=== PATIENT | male | born 1995 | race Caucasian/White ===

== ENCOUNTER 2017-05-18 03:48 | Emergency (ER) | payer OTHER ==
[2017-05-18 04:18] VITALS: TEMP 97.6; BMI 30.5
[2017-05-18] MEDS ORDERED: traMADol HCL 50 MG TABLET PO ONE (04:22)
[2017-05-18] MEDS ORDERED: traMADol HCL 50 MG TABLET ONE (04:34)
--- NOTE | 2017-05-18 04:40 | PDOC ---
History of Present Illness - General Chief Complaint: Injury Stated Complaint: FALL Time Seen by Provider: 05/18/17 04:02 History Source: Patient Exam Limitations: No Limitations - History of Present Illness Initial Comments: 05/18/17 04:32 Patient is a 21-year-old male with no past medical history who presents to the emergency department tonight stating he broke his teeth. Patient was walking into his house when he tripped over his feet and fell on the driveway. He states that he blacked out for approximately 30 seconds after falling came to and notices teeth were missing. Patient did not states that she. Denies neck pain, headache,eyepain, jawpain. Denies drug and alcohol use Past History - Travel Traveled outside of the country in the last 30 days: No Close contact w/someone who was outside of country & ill: No - Past Medical History Allergies/Adverse Reactions: Allergies Allergy/AdvReac Type Severity Reaction Status Date / Time minerals [From Enviro Stress] Allergy Difficulty Verified 05/18/17 04:16 Breathing vitamin B complex and C Allergy Difficulty Verified 05/18/17 04:16 [From Enviro Stress] Breathing vitamin E Allergy Difficulty Verified 05/18/17 04:16 [From Enviro Stress] Breathing Home Medications: Ambulatory Orders Cetirizine HCl [Zyrtec -] 5 mg PO ASDIR 11/19/14 Ibuprofen [Motrin -] 600 mg PO TID #21 tablet 11/19/14 Tramadol HCl 50 mg PO TID #10 tablet MDD 3 05/18/17 - Immunization History Immunization Up to Date: Yes - Suicide/Smoking/Psychosocial Hx Smoking Status: No Smoking History: Never smoked Have you smoked in the past 12 months: No Number of Cigarettes Smoked Daily: 0 Information on smoking cessation initiated: No Hx Alcohol Use: No Drug/Substance Use Hx: No Review of Systems - Review of Systems Able to Perform ROS?: Yes Comments:: 05/18/17 04:44 CONSTITUTIONAL: Absent: fever, chills, diaphoresis, generalized weakness, malaise, loss of appetite HEENT: Absent: rhinorrhea, nasal congestion, throat pain, throat swelling, difficulty swallowing, mouth swelling, ear pain, eye pain, visual Changes CARDIOVASCULAR: Absent: chest pain, loss of consciousness, palpitations, irregular heart rate, peripheral edema RESPIRATORY: Absent: cough, shortness of breath, dyspnea with exertion, orthopnea, wheezing, stridor, hemoptysis GASTROINTESTINAL: Absent: abdominal pain, abdominal distension, nausea, vomiting, diarrhea, constipation, melena, hematochezia GENITOURINARY: Absent: dysuria, frequency, urgency, hesitancy, hematuria, flank pain, genital pain MUSCULOSKELETAL: Absent: myalgia, arthralgia, joint swelling SKIN: Absent: rash, itching, pallor HEMATOLOGIC/IMMUNOLOGIC: Absent: easy bleeding, easy bruising, lymphadenopathy, frequent infections ENDOCRINE: Absent: unexplained weight gain, unexplained weight loss, heat intolerance, cold intolerance NEUROLOGIC: Absent: headache, focal weakness or paresthesias, dizziness, unsteady gait, seizure, mental status changes, bladder or bowel incontinence PSYCHIATRIC: Absent: anxiety, depression, suicidal or homicidal ideation, hallucinations. Is the patient limited Maori proficient: No *Physical Exam - Vital Signs Last Vital Signs Temp Pulse Resp BP Pulse Ox 97.6 F 119 H 20 132/91 99 05/18/17 03:50 05/18/17 03:50 05/18/17 03:50 05/18/17 03:50 05/18/17 03:50 - Physical Exam Comments: 05/18/17 04:44 GENERAL: Well developed, well nourished. Awake and alert. No acute distress. HEENT: Normocephalic, atraumatic. PERRLA, EOMI. No conjunctival pallor. Sclera are non- icteric. Moist mucous membranes. Oropharynx is clear. NECK: Supple. Full ROM. No JVD. Carotid pulses 2+ and symmetric, without bruits. No thyromegaly. No lymphadenopathy. CARDIOVASCULAR: Regular rate and rhythm. No murmurs, rubs, or gallops. Distal pulses are 2+ and symmetric. PULMONARY: No evidence of respiratory distress. Lungs clear to auscultation bilaterally. No wheezing, rales or rhonchi. ABDOMINAL: Soft. Non-tender. Non-distended. No rebound or guarding. No organomegaly. Normoactive bowel sounds. MUSCULOSKELETAL Normal range of motion at all joints. No bony deformities or tenderness. No CVA tenderness. EXTREMITIES: No cyanosis. No clubbing. No edema. No calf tenderness. SKIN: Warm and dry. Normal capillary refill. No rashes. No jaundice. NEUROLOGICAL: Alert, awake, appropriate. Cranial nerves 2-12 intact. No deficits to light touch and temperature in face, upper extremities and lower extremities. No motor deficits in the in face, upper extremities and lower extremities. Normoreflexic in the upper and lower extremities. Normal speech. Toes are down- going bilaterally. Gait is normal without ataxia. PSYCHIATRIC: Cooperative. Good eye contact. Appropriate mood and affect. Medical Decision Making - Medical Decision Making 05/18/17 04:44 Patient is a 21-year-old male with no past medical history who presents to the emergency department today with complex dental fractures. Spoke with Dr. Hector joe oral surgeron at [facility] who recommends that patient come to the general clinic after opening at 9 AM. The pulp should remain intact until he didn't can be seen in the morning. Does not recommend antibiotics at this time if he can follow-up today. Recommends medicating for pain. Tetanus is up-to-date. Also instructed to have the patient avoid hot and cold foods. Patient did have a brief loss of consciousness during the fall. However neurologically the patient is intact, without headache. There is no concern for jaw fracture, orbital floor fracture (EOMI intact). Head with no step-offs or crepitus felt. Will discharge the patient home at this time with instructions to go to the [facility] at 9 AM this morning for follow-up. Patient understands the need to follow-up and agrees to go. Patient also given strict return precautions for headache/head trauma. Patient understands all discharge instructions and all questions were answered at this time. *DC/Admit/Observation/Transfer Diagnosis at time of Disposition: Tooth fractures Qualifiers: Encounter type: initial encounter Fracture type: open Qualified Code(s): S02.5XXB - Fracture of tooth (traumatic), initial encounter for open fracture - Discharge Dispostion Disposition: HOME Condition at time of disposition: Stable Admit: No - Referrals - Patient Instructions Additional Instructions: You fell tonight and broke your teeth. It is very important that you follow-up with the [facility] this morning at 9 AM. You can walk in. Below was the information for the clinic [address] [place] [address] [phone] Please avoid eating or drinking hot or cold foods as to not irritate your teeth. He may take Tylenol or Motrin as needed for pain. Your also prescribed tramadol for breakthrough pain. He may take this medication every 8 hours. Please eat soft foods as to avoid getting food stuck in the teeth. Use a Luke warm water rinse after you eat to get any remaining food out. Return to the emergency department immediately if you have headaches, changes in your vision, do not feel like yourself, nausea, vomiting, or any changes in your symptoms. - Post Discharge Activity Forms/Work/School Notes: Back to Work
--- NOTE | 2017-05-18 04:44 | PDOC ---
*Physical Exam - Vital Signs Last Vital Signs Temp Pulse Resp BP Pulse Ox 97.6 F 119 H 20 132/91 99 05/18/17 03:50 05/18/17 03:50 05/18/17 03:50 05/18/17 03:50 05/18/17 03:50 ED Treatment Course - Medications Given in the ED: ED Medications Discontinued Medications Generic Name Dose Route Start Last Admin Trade Name Freq PRN Reason Stop Dose Admin Tramadol HCl 50 mg 05/18/17 04:22 05/18/17 04:39 Ultram - PO 05/18/17 04:23 50 mg ONCE ONE Administration Medical Decision Making - Medical Decision Making 05/18/17 04:44 Pt seen by the Advanced Practice Provider under my direct supervision Pt interviewed and examined Ancillary studies reviewed I agree with plan as outlined by the Advanced Practice Provider ALIX Self
[2017-05-18 05:28] VITALS: BP 124/85; PULSE 101
== END 2017-05-18 05:30 | disposition home or self-care (01) ==
LOC: JER 03:48
DX: S02.5XXB Fracture of tooth (traumatic), initial encounter for open fracture (principal); W01.0XXA Fall on same level from slipping, tripping and stumbling without subsequent striking against object, initial encounter; Y93.89 Activity, other specified; Y92.9 Unspecified place or not applicable
CPT/HCPCS: 99282-25